=== PATIENT | male | born 1975 | race Caucasian/White ===

== ENCOUNTER 2017-10-16 11:50 | Emergency (ER) | payer BC ==
[2017-10-16 12:19] VITALS: BP 132/87
--- NOTE | 2017-10-16 13:32 | RAD ---
INDICATION: Low back and LEFT flank pain. Pelvic region tenderness. Negative for hematuria or history of urolithiasis. COMPARISON: October 31, 2013 TECHNIQUE: Multidetector CT images were obtained from the lung bases to the ischial tuberosities. Evaluation of the viscera is limited without IV contrast. Multiplanar reformation including dedicated bone algorithm series of the lumbar sacral spine. REPORT: Unremarkable visualized inferior thorax. 20 cm cephalocaudal liver with normal surface contour is heterogeneously decreased in density most consistent with patchy fatty infiltration. No suspicious focal hepatic lesions or biliary dilatation. No CT abnormality of the gallbladder, pancreas, spleen. Negative for CT abnormality of the upper GI, small bowel, retrocecal appendix, or colon aside from a few colonic diverticula without findings of diverticulitis. Negative for ascites or free air. Small fat-containing umbilical hernia without inflammatory change. Normal adrenal glands. 0.7 cm midpole stone LEFT kidney. Unremarkable nondilated ureters and urinary bladder. Unremarkable visualized male urogenital structures. Negative for lymphadenopathy. Normal diameter abdominal aorta and iliac arteries. Physiologic distention of the IVC. 0.8 cm subtle sclerotic focus at the RIGHT iliac bone adjacent to the sacroiliac joint is unchanged compared with the 2014 exam without concern. No suspicious focal osseous lesions evident. Normal lumbar sacral spine alignment. At L4-L5 there is a mild annular disc bulge as well as mild facet joint osteoarthritis with resulting mild alteration in the shape of the thecal sac without significant resulting central canal stenosis. Degenerative spondylosis and facet joint osteoarthritis results in mild bilateral foraminal stenosis. At L5-S1 there is moderate disc space narrowing and mild dorsal disc bulge and vertebral endplate osteophytosis with resulting mild impression on the ventral margin of the thecal sac. Degenerative spondylosis and facet joint osteoarthritis results in only mild bilateral foraminal stenosis. IMPRESSION: 1. Enlarged liver with strong suggestion of patchy fatty infiltration. As sensitivity for detection of a focal hepatic lesion is limited with noncontrast exam and presence of fatty infiltration hepatic ultrasound is suggested for further assessment. 2. Nonobstructing LEFT renal stone. Negative for hydronephrosis. 3. Mild L4-L5 and moderate L5-S1 degenerative spondylosis and mild facet joint osteoarthritis without significant interval change compared with the 2014 exam. Mild resulting foraminal stenosis at both levels.
--- NOTE | 2017-10-16 14:02 | UC ---
Mary Carmen Reddy Emily, scribed for Gamaliel Guthrie MD on 10/16/17 at 1246 . Back Pain HPI - HPI Summary HPI Summary: This patient is a 42 year old M presenting to urgent care with a chief complaint of back and L flank pain that began 9 days ago. The patient rates the pain 5/10 in severity. Symptoms aggravated by nothing. Symptoms alleviated by nothing. Patient reports groin pain and LLQ abd pain. Patient denies fever, chills, and bowel symptoms. Pt reports seeing a physician in [place], who took x-rays. Pt reports the x-rays finding calcium deposits on his kidneys. - History of Current Complaint Chief Complaint: UCBackPain Stated Complaint: LOWER BACK PAIN Time Seen by Provider: 10/16/17 12:36 Hx Obtained From: Patient Onset/Duration: Sudden Onset, Lasting Weeks, Still Present Timing: Constant Severity Initially: Moderate Severity Currently: Moderate Pain Intensity: 5 Pain Scale Used: 0-10 Numeric Character: Aching Aggravating Factor(s): Nothing Alleviating Factor(s): Nothing Associated Signs And Symptoms: Positive: Other - Positive groin pain. Negative fever, chills, and bowel symptoms - Allergies/Home Medications Allergies/Adverse Reactions: Allergies Allergy/AdvReac Type Severity Reaction Status Date / Time Mushroom Allergy Severe Anaphylatic Uncoded 10/16/17 12:18 Shock Pollen Allergy Intermediate Eyes Uncoded 10/16/17 12:18 Itchy/Swollen/Red/Watery Home Medications: Home Medications Fexofenadine (NF) [Aliyn (NF)] 60 mg PO DAILY 10/16/17 [History Confirmed ] Ibuprofen [Ibu-200] 200 mg PO Q6H PRN 10/16/17 [History Confirmed 10/16/17] Omeprazole CAP* [Prilosec CAP* 20 MG] 20 mg PO DAILY 10/16/17 [History Confirmed 10/16/17] PMH/Surg Hx/FS Hx/Imm Hx Previously Healthy: No Respiratory History: Asthma GI/ History: Other Other GI/ History: Negative kidney stone - Surgical History Surgical History: None - Family History Known Family History: Positive: Hypertension, Diabetes - Social History Occupation: Employed Full-time Lives: Alone Alcohol Use: Occasionally Substance Use Type: None Smoking Status (MU): Light Every Day Tobacco Smoker Amount Used/How Often: 2 packs a year Household Exposure Type: Cigars - Immunization History Most Recent Influenza Vaccination: none Review of Systems Constitutional: Other - Negative fever and chills Gastrointestinal: Abdominal Pain, Other - Negative bowel symptoms Genitourinary: Other - Positive groin pain Musculoskeletal: Other: - Positive back pain All Other Systems Reviewed And Are Negative: Yes Physical Exam Triage Information Reviewed: Yes Vital Signs: Initial Vital Signs Temp 97.9 F 10/16/17 12:14 Pulse 78 10/16/17 12:14 Resp 16 10/16/17 12:14 BP 132/87 10/16/17 12:14 Pulse Ox 99 10/16/17 12:14 Vital Signs Reviewed: Yes - Additional Comments General: well-appearing, no pain distress Skin: warm, color reflects adequate perfusion, dry Head: normal Eyes: EOMI, ABRAHAM ENT: normal Neck: supple, nontender Respiratory: CTA, breath sounds present Cardiovascular: RRR Abdomen: soft, Mild tenderness to percussion left flank, mild tenderness to palpation LLQ Bowel: present Musculoskeletal: normal, strength/ROM intact Neurological: normal, sensory/motor intact, A&O x3 Psychological: affect/mood appropriate Diagnostics - Radiology Lumbar Spine CT Radiology Interpretation Completed By: Radiologist - Lumbar spine CT reveals, per radiologist, 1. Enlarged liver with strong suggestion of patchy fatty infiltration. As sensitivity for detection of a focal hepatic lesion is limited with noncontrast exam and presence of fatty infiltration hepatic ultrasound is suggested for further assessment. 2. Nonobstructing LEFT renal stone. Negative for hydronephrosis. 3. Mild L4-L5 and moderate L5-S1 degenerative spondylosis and mild facet joint osteoarthritis without significant interval change compared with the 2014 exam. Mild resulting foraminal stenosis at both levels. ED physician has reviewed this radiology report. Abdomen/Pelvis CT Radiology Interpretation Completed By: Radiologist - Abdomen/Pelvis CT reveals, per radiologist, 1. Enlarged liver with strong suggestion of patchy fatty infiltration. As sensitivity for detection of a focal hepatic lesion is limited with noncontrast exam and presence of fatty infiltration hepatic ultrasound is suggested for further assessment. 2. Nonobstructing LEFT renal stone. Negative for hydronephrosis. 3. Mild L4-L5 and moderate L5-S1 degenerative spondylosis and mild facet joint osteoarthritis without significant interval change compared with the 2014 exam. Mild resulting foraminal stenosis at both levels. ED physician has reviewed this radiology report. Back Pain Course/Dx - Course Course Of Treatment: DISCUSSED RESULTS WITH PATIENT. MOST PROBABLE CAUSE OF THE PAIN IS LOW BACK STRAIN THE PAIN WORSENS WITH LOW BACK FLEXION, HE HAS NO GI OR URINARY SX, UA NL, CT NAD, NO NEURO DEFICITS. LABS PENDING. F/U PMD; RETURN TO CLINIC OR ED IF WORSE. - Differential Dx/Diagnosis Provider Diagnoses: LOW BACK PAIN. FLANK PAIN. ABDOMINAL PAIN Discharge - Discharge Plan Condition: Stable Disposition: HOME Patient Education Materials: Acute Low Back Pain (ED), Abdominal Pain (ED), Flank Pain (ED), Lower Back Exercises (ED) Forms: *Work Release Referrals: [facility] [place] [facility]IAN REFERRAL [Outside] No Primary Care Phys,NOPCP [Primary Care Provider] - Additional Instructions: FOLLOW UP WITH YOUR DOCTOR. GO TO THE EMERGENCY DEPARTMENT FOR ANY WORSENING OF YOUR CONDITION; PAIN, FEVER , WEAKNESS, NUMBNESS, LOSS OF CONTROL OF BOWEL OR BLADDER, YOU FEEL ILL OR QUESTIONS OR CONCERNS. The documentation as recorded by the Mary Carmen szymanski Emily accurately reflects the service I personally performed and the decisions made by me, Gamaliel Guthrie MD.
[2017-10-16 19:08] LABS: ABS Basophils 0.1 10^3/ul (0-0.2); ABS Eosinophils 0.3 10^3/ul (0-0.6); ABS Lymphocytes 2.1 10^3/ul (1.0-4.8); ABS Monocytes 0.7 10^3/ul (0-0.8); ABS Neutrophils 6.7 10^3/ul (1.5-7.7); ABS Nucleated RBC 0 10^3/ul; Eosinophil % 3.4 % (0-6); Hematocrit 46 % (42-52); Hemoglobin 15.2 g/dl (14.0-18.0); Lymphocyte % 21.1 % (25-47); Mean Corpuscular HGB Conc 33 g/dl (31-36); Mean Corpuscular Hemoglobin 28 pg (27-31); Mean Corpuscular Volume 85 fL (80-94); Mean Platelet Volume 9 um3 (7.4-10.4); Nucleated Red Blood Cells % 0.1; Platelet Count 325 10^3/ul (150-450); Red Blood Count 5.47 10^6/ul (4.0-5.4); Red Cell Distribution Width 13 % (10.5-15); White Blood Count 9.9 10^3/ul (3.5-10.8)
[2017-10-16 19:28] LABS: EGFR Non-African American 82.1 (>60)
--- NOTE | 2017-10-17 13:20 | UC ---
- Progress Note Progress Note: BLOOD WORK SHOWS VERY SLIGHTLY ELEVATED ALK PHOS. WOULD SIMPLY RECOMMEND RECHECK WHEN FEELING BETTER. F/U WITH PCP. - RACHEL SONG MD Course/Dx - Course Course Of Treatment: DISCUSSED RESULTS WITH PATIENT. MOST PROBABLE CAUSE OF THE PAIN IS LOW BACK STRAIN THE PAIN WORSENS WITH LOW BACK FLEXION, HE HAS NO GI OR URINARY SX, UA NL, CT NAD, NO NEURO DEFICITS. LABS PENDING. F/U PMD; RETURN TO CLINIC OR ED IF WORSE.
--- NOTE | 2017-10-17 13:28 | UC ---
Course/Dx - Course Course Of Treatment: DISCUSSED RESULTS WITH PATIENT. MOST PROBABLE CAUSE OF THE PAIN IS LOW BACK STRAIN THE PAIN WORSENS WITH LOW BACK FLEXION, HE HAS NO GI OR URINARY SX, UA NL, CT NAD, NO NEURO DEFICITS. LABS PENDING. F/U PMD; RETURN TO CLINIC OR ED IF WORSE.
--- NOTE | 2017-10-17 22:00 | UC ---
- Progress Note Progress Note: neg GC, neg ch no change Praveenj 10/17/17 Course/Dx - Course Course Of Treatment: DISCUSSED RESULTS WITH PATIENT. MOST PROBABLE CAUSE OF THE PAIN IS LOW BACK STRAIN THE PAIN WORSENS WITH LOW BACK FLEXION, HE HAS NO GI OR URINARY SX, UA NL, CT NAD, NO NEURO DEFICITS. LABS PENDING. F/U PMD; RETURN TO CLINIC OR ED IF WORSE.
== END 2017-10-16 14:08 | disposition home or self-care (01) ==
LOC: UCEAST 11:50
DX: M54.5 Low back pain (principal); R10.32 Left lower quadrant pain; R16.0 Hepatomegaly, not elsewhere classified; N20.0 Calculus of kidney; M47.816 Spondylosis without myelopathy or radiculopathy, lumbar region; J45.909 Unspecified asthma, uncomplicated; F17.290 Nicotine dependence, other tobacco product, uncomplicated
CPT/HCPCS: 36415; 72131; 74176; 80053; 81003; 83690; 85025; 86140; 87491; 87591; 99201; G0463

== ENCOUNTER 2019-06-17 16:17 | Emergency (ER) | payer BC ==
[2019-06-17 16:29] VITALS: BP 133/88
--- NOTE | 2019-06-17 16:43 | UC ---
Throat Pain/Nasal Fer HPI - HPI Summary HPI Summary: The patient is a 44 yo male who has been suffering with severe ANA x mos He uses ronald every day and flonase every AM His symptoms have been worsening for > 2 weeks and have been especially bad the past 5 days facial pressure and pain post nasal drip bilateral otalgia - History of Current Complaint Chief Complaint: UCRespiratory Stated Complaint: SINUS COMPLAINT Time Seen by Provider: 06/17/19 16:33 Hx Obtained From: Patient Onset/Duration: Gradual Onset, Lasting Weeks Severity: Severe Pain Intensity: 7 Pain Scale Used: 0-10 Numeric Cough: Nonproductive Associated Signs & Symptoms: Positive: Hoarseness, Sinus Discomfort, Nasal Discharge Related History: Seasonal Allergies - Epiglottits Risk Factors Epiglottis Risk Factors: Negative - Allergies/Home Medications Allergies/Adverse Reactions: Allergies Allergy/AdvReac Type Severity Reaction Status Date / Time Mushroom Allergy Severe Anaphylatic Uncoded 10/16/17 12:18 Shock Pollen Allergy Intermediate Eyes Uncoded 06/17/19 16:29 Itchy/Swollen/Red/Watery PMH/Surg Hx/FS Hx/Imm Hx Previously Healthy: Yes - Surgical History Surgical History: None - Family History Known Family History: Positive: Hypertension, Diabetes - Social History Alcohol Use: Occasionally Substance Use Type: None Smoking Status (MU): Light Every Day Tobacco Smoker Amount Used/How Often: 2 packs a year Household Exposure Type: Cigars - Immunization History Most Recent Influenza Vaccination: none Review of Systems All Other Systems Reviewed And Are Negative: Yes Constitutional: Positive: Fatigue Skin: Positive: Bruising Eyes: Positive: Negative ENT: Positive: Ear Ache, Nasal Discharge, Sinus Congestion, Sinus Pain/ Tenderness Respiratory: Positive: Negative Cardiovascular: Positive: Negative Gastrointestinal: Positive: Negative Genitourinary: Positive: Negative Motor: Positive: Negative Neurovascular: Positive: Negative Musculoskeletal: Positive: Negative Neurological: Positive: Negative Psychological: Positive: Negative Physical Exam Triage Information Reviewed: Yes Appearance: Well-Appearing, No Pain Distress, Well-Nourished Vital Signs: Initial Vital Signs Temp 97.7 F 06/17/19 16:25 Pulse 85 06/17/19 16:25 Resp 18 06/17/19 16:25 BP 133/88 06/17/19 16:25 Pulse Ox 98 06/17/19 16:25 Vital Signs Reviewed: Yes Eyes: Positive: Conjunctiva Clear ENT: Positive: Hearing grossly normal, Sinus tenderness - L>R, Uvula midline. Negative: Nasal congestion, Nasal drainage, Trismus, Muffled voice, Hoarse voice Neck: Positive: Supple, Nontender, No Lymphadenopathy Respiratory: Positive: Lungs clear, Normal breath sounds, No respiratory distress, No accessory muscle use Cardiovascular: Positive: RRR, No Murmur Musculoskeletal: Positive: ROM Intact, No Edema Neurological: Positive: Alert Psychological Exam: Normal Skin Exam: Normal Throat Pain/Nasal Course/Dx - Course Course Of Treatment: patient advised to get a flu shot this fall and find a primary care provider to follow BP and for routine HCM - Differential Dx/Diagnosis Provider Diagnosis: Acute sinusitis, Bilateral serous otitis media, Elevated BP without diagnosis of hypertension Discharge ED - Sign-Out/Discharge Documenting (check all that apply): Patient Departure All imaging exams completed and their final reports reviewed: No Studies - Discharge Plan Condition: Stable Disposition: HOME Prescriptions: Amoxicillin PO (*) [Amoxicillin 875 MG (*)] 875 mg PO BID #14 tab Patient Education Materials: Sinusitis (ED) Referrals: [facility] [place] [facility] REFERRAL [Outside] - If Needed Additional Instructions: I suggest you: use saline nasal spray -2 sprays each nostril twice daily increase your flonase to 2 sprays each nostril twice daily for 2-3 weeks warm facial compresses return for new or worsening symptoms recheck in not better in 4-6 days BP is a little high here you should get it rechecked in 2-12 weeks - Billing Disposition and Condition Condition: STABLE Disposition: Home
== END 2019-06-17 16:52 | disposition home or self-care (01) ==
LOC: UCEAST 16:17
DX: J01.90 Acute sinusitis, unspecified (principal); H65.93 Unspecified nonsuppurative otitis media, bilateral; R03.0 Elevated blood-pressure reading, without diagnosis of hypertension; F17.210 Nicotine dependence, cigarettes, uncomplicated
CPT/HCPCS: 99212; G0463

== ENCOUNTER 2019-07-31 18:26 | Emergency (ER) | payer BC ==
[2019-07-31 18:38] VITALS: BP 127/78
--- NOTE | 2019-07-31 19:33 | UC ---
Throat Pain/Nasal Fer HPI - HPI Summary HPI Summary: Patient is a 44yo male presenting with nasal congestion, sinus pain, radiating pain into teeth, and b/l ear pressure x5 days. Patient staes he has seasonal allergies that progress to sinus infections every year. Denies sore throat and cough. Denies fever, chills, headache. Denies n/v/. Patient states he has been taking Sudafed without relief. Takes Flonase and ailyn daily. - History of Current Complaint Chief Complaint: UCRespiratory Stated Complaint: EAR ACHE, AND SINUS CONGESTION Hx Obtained From: Patient Onset/Duration: Gradual Onset, Lasting Days Severity: Moderate Pain Intensity: 6 Pain Scale Used: 0-10 Numeric - Allergies/Home Medications Allergies/Adverse Reactions: Allergies Allergy/AdvReac Type Severity Reaction Status Date / Time Mushroom Allergy Severe Anaphylatic Uncoded 07/31/19 18:38 Shock Pollen Allergy Intermediate Eyes Uncoded 07/31/19 18:38 Itchy/Swollen/Red/Watery Home Medications: Home Medications Fluticasone Propionate [Flonase Allergy Relief] PRN 07/31/19 [History] Pseudoephedrine TAB* [Sudafed TAB*] 60 mg PO ONCE PRN 07/31/19 [History Confirmed 07/31/19] PMH/Surg Hx/FS Hx/Imm Hx Previously Healthy: Yes - Surgical History Surgical History: None - Family History Known Family History: Positive: Hypertension, Diabetes - Social History Alcohol Use: Occasionally Substance Use Type: None Smoking Status (MU): Current Some Day Smoker Amount Used/How Often: 5 cig/year Household Exposure Type: Cigars - Immunization History Most Recent Influenza Vaccination: none Review of Systems All Other Systems Reviewed And Are Negative: Yes Constitutional: Positive: Negative. Negative: Fever, Chills ENT: Positive: Ear Ache, Nasal Discharge, Sinus Congestion, Sinus Pain/ Tenderness. Negative: Sore Throat Respiratory: Positive: Negative Cardiovascular: Positive: Negative Gastrointestinal: Positive: Negative Musculoskeletal: Positive: Negative Neurological: Positive: Negative Physical Exam Triage Information Reviewed: Yes Appearance: Well-Appearing, No Pain Distress, Well-Nourished Vital Signs: Initial Vital Signs Temp 97.6 F 07/31/19 18:34 Pulse 87 07/31/19 18:34 Resp 18 07/31/19 18:34 BP 127/78 07/31/19 18:34 Pulse Ox 100 10/30/19 18:34 Vital Signs Reviewed: Yes Eyes: Positive: Conjunctiva Inflamed ENT: Positive: Hearing grossly normal, Pharynx normal, Nasal drainage - PND, TM red - b/l, Sinus tenderness - maxillary, Uvula midline Neck exam: Normal Neck: Positive: Supple, Nontender, No Lymphadenopathy Respiratory Exam: Normal Respiratory: Positive: Lungs clear, Normal breath sounds, No respiratory distress Cardiovascular Exam: Normal Cardiovascular: Positive: RRR Neurological: Positive: Alert Psychological: Positive: Age Appropriate Behavior Throat Pain/Nasal Course/Dx - Course Course Of Treatment: I treated with Augmentin for sinusitis. Instructed to continue symptomatic treatment. Instructed to follow up with PCP or care collections clinic if symptoms persist. Patient voiced understanding and agreed with the treatment plan. - Differential Dx/Diagnosis Provider Diagnosis: Sinusitis Discharge ED - Sign-Out/Discharge Documenting (check all that apply): Patient Departure All imaging exams completed and their final reports reviewed: No Studies - Discharge Plan Condition: Stable Disposition: HOME Prescriptions: Amoxicillin/Clavulanate TAB* [Augmentin TAB 875*] 875 mg PO BID #14 tab Patient Education Materials: Rhinosinusitis (ED) Referrals: [facility] [Outside] - If Needed [facility] [place] [facility] REFERRAL [Outside] - If Needed Additional Instructions: As discussed, take Augmentin for the treatment of your sinusitis. You may continue to take otc decongestant as directed to help reduce mucus production. You may continue use of Flonase and Ailyn for symptomatic relief. You may take ibuprofen as directed for pain relief. Get plenty of rest and fluids. Follow up with one of the referrals listed below if your symptoms worsen or do not resolve within 7 days. - Billing Disposition and Condition Condition: STABLE Disposition: Home
== END 2019-07-31 19:48 | disposition home or self-care (01) ==
LOC: UCEAST 18:26
DX: J32.9 Chronic sinusitis, unspecified (principal); F17.210 Nicotine dependence, cigarettes, uncomplicated; Z91.018 Allergy to other foods; Z91.09 Other allergy status, other than to drugs and biological substances
CPT/HCPCS: 99212; G0463